=== PATIENT | male | born 1980 | race Caucasian/White ===

== ENCOUNTER 2019-06-16 14:43 | Outpatient (CLI) | payer BC, SELFPAY ==
--- NOTE | ~2019-06-16 | XR_ITS ---
EXAMINATION: XR chest 2V DATE: 06/16/2019 15:00 INDICATION: Cough and wheezing TECHNIQUE: PA and lateral views of the chest are obtained. COMPARISON: None available FINDINGS: The lungs are free of acute opacities. There is no pleural effusion or pneumothorax. The ca rdiomediastinal silhouette is normal. The visualized bones and soft tissues are unremarkable. IMPRESSION: 1. No acute cardiopulmonary abnormality. Reviewed, dictated and finalized at location A.
== END 2019-06-16 14:44 | disposition home or self-care (01) ==
PROVIDERS: Visit Provider Nurse Practitioner Family
DX: R06.2 Wheezing (principal)
CPT/HCPCS: 71046

== ENCOUNTER 2019-06-23 14:06 | Outpatient (CLI) | payer BC, SELFPAY ==
--- NOTE | ~2019-06-23 | XR_ITS ---
EXAMINATION: XR chest 2V 06/23/2019 14:49 INDICATION: Shortness of breath and chest pain PROCEDURE: 2 view chest COMPARISON: 06/16/2019 FINDINGS: The lungs are clear. The cardiomediastinal silhouette is within normal limits. There are no pleural effusions. There is no pneumothorax suspected. IMPRESSION: 1: NO ACUTE CARDIOPULMONARY DISEASE. Reviewed, dictated and finalized at location A.
--- NOTE | 2019-06-23 14:13 | ECG_ITS ---
Measurements Intervals [place] Rate: 82 P: 63 HI: 144 QRS: -27 QRSD: 100 T: 43 QT: 362 QTc: 423 Interpretive Statements SINUS RHYTHM BASELINE ARTIFACT- I, II, III, AVL NORMAL ECG Electronically Signed On 06-23-2019 15:17:27 CDT by Andre Molina D.O.
[2019-06-23 14:30] LABS: Basophils Absolute Auto 0.04 K/mm3 (0.00-0.10); Basophils Percent Auto 0.2 % (0.0-1.0); Hematocrit 49.3 % (40.0-54.0); Hemoglobin 17.3 g/dL (14.0-18.0); Immature Granulocyte Percent A 0.5 % (0.0-0.0); Lymphocytes Absolute Auto 2.22 K/mm3 (1.10-4.50); Lymphocytes Percent Auto 11.4 % (18.0-42.0); Mean Corpuscular HGB Conc 35.1 g/dL (32.0-36.0); Mean Corpuscular Hemoglobin 30.1 pg (27.0-31.0); Mean Corpuscular Volume 85.9 fL (78.0-102.0); Mean Platelet Volume 10.5 fl (8.7-11.0); Monocytes Absolute Auto 1.24 K/mm3 (0.10-0.90); Monocytes Percent Auto 6.3 % (2.0-11.0); Neutrophils Absolute Auto 15.9 K/mm3 (1.7-7.2); Neutrophils Percent Auto 81.6 % (50.0-70.0); Platelet Count Result 339 K/mm3 (150-420); Red Blood Count 5.74 M/mm3 (4.70-6.10); Red Cell Distribution Width 11.9 % (11.6-14.4); White Blood Count 19.5 K/mm3 (4.8-10.8)
[2019-06-23 14:49] LABS: Alanine Aminotransferase 40 U/L (16-63); Alkaline Phosphatase 142 U/L (46-116); Anion Gap 16.9 mmol/L (7-16); Aspartate Amino Transferase 20 U/L (15-37); Bilirubin,Total 0.4 mg/dL (0.00-1.00); Blood Urea Nitrogen 16 mg/dL (7-18); Calcium 9.1 mg/dL (8.5-10.1); Carbon Dioxide 26 mmol/L (21-32); Chloride 99 mmol/L (98-108); Estimated Glomerular Filt Rate > 60; Glucose 101 mg/dL (70-99); Lipase 142 U/L (73-393); Osmolality Calculated 287 mOsm/kg (285-295); Potassium 3.9 mmol/L (3.5-5.1); Sodium 138 mmol/L (136-145); Total Protein 8.2 g/dL (6.4-8.2); Troponin I < 0.02 ng/mL (0.00-0.056)
== END 2019-06-23 14:07 | disposition home or self-care (01) ==
PROVIDERS: PCP Nurse Practitioner Family; Visit Provider Nurse Practitioner Family
DX: R07.9 Chest pain, unspecified (principal); R10.9 Unspecified abdominal pain; R11.2 Nausea with vomiting, unspecified; R06.02 Shortness of breath
CPT/HCPCS: 36415; 71046; 80053; 83690; 84484; 85025; 93005

== ENCOUNTER 2019-06-23 16:20 | Emergency (ER) | payer BC, SELFPAY ==
--- NOTE | ~2019-06-23 | CT_ITS ---
EXAMINATION: CT abdomen pelvis w con DATE: 06/23/2019 17:56 INDICATION: Epigastric abdominal pain. Fever. TECHNIQUE: Computed tomography (CT) of the abdomen and pelvis was performed with 100 mL Omnipaque 350 intravenous contrast. Automated exposure control and iterative reconstruction technique were employe d. The dose-length product was 1156.76 mGy-cm. COMPARISON: None. FINDINGS: The visualized portions of the lung bases demonstrate a 5 mm nodule in right middle lobe, l ikely benign. No pleural effusion. The heart size is normal. No pericardial effusion. The liver, gall bladder, spleen, pancreas, adrenal glands, and kidneys are normal. There is a small left inguinal her gavin containing fat. The colon is unremarkable. The appendix is not visualized. There is wall thickeni ng of the distal duodenum and proximal jejunum with fat stranding in the mesentery. There are mildly enlarged mesenteric lymph nodes in this area. There is an umbilical hernia containing fat. There is n o free intraperitoneal fluid. There is moderate degenerative disc disease at L5-S1. IMPRESSION: 1. Enteritis involving the distal duodenum and proximal jejunum. 2. Mild mesenteric lymphadenopathy, likely reactive. Reviewed, dictated and finalized at location A.
[2019-06-23 16:41] VITALS: BP 138/91; PULSE 89; RESP 12; TEMP 36.8; O2SAT 98
--- NOTE | 2019-06-23 16:44 | ED.ABDPAIN ---
HPI - Abdominal Pain General Chief Complaint: Abdominal Pain Stated Complaint: abd pain Time Seen by Provider: 06/23/19 16:55 Source: patient and family Mode of arrival: ambulatory Limitations: no limitations Related Data Home Medications Medication Instructions Recorded Confirmed mesalamine 1.2 gram tablet,delayed 2.4 gm PO DAILY 06/23/19 06/23/19 release Allergies Allergy/AdvReac Type Severity Reaction Status Date / Time No Known Allergies Allergy Unverified 06/23/19 13:36 [facility] Social History Social History (Updated 06/23/19 @ 13:38 by Iona Sharma MA) Smoking status: Former smoker Tobacco type: cigarettes and e-cigarettes Alcohol intake: current Substance use: never Substance use type: does not use Additional living arrangements comments: Additional occupation/education comments: [employer] Discharge Plan Discharge Clinical Impression: Enteritis Pneumonia Qualifiers: Pneumonia type: due to unspecified organism Laterality: unspecified laterality Lung location: unspecified part of lung Qualified Code(s): J18.9 - Pneumonia, unspecified organism Patient Disposition: Acute Care Hospital Condition: Stable Instructions: Community Acquired Pneumonia (ED), Enteritis (ED) Additional Instructions: Call your doctors for follow up. Obtain stool specimen before taking antibiotics if possible. Use inhaler 1-2 puffs every 6 hours as needed. Prescriptions: New levofloxacin 750 mg tablet 750 mg PO DAILY Qty: 5 RF: 0 Combivent Respimat 20-100 mcg/actuation mist 1 - 2 puff INHALATION Q6H PRN (Reason: shortness of breath or wheezing) Qty: 4 RF: 0 Continued mesalamine 1.2 gram tablet,delayed release (DR/EC) 2.4 gm PO DAILY RF: 0 Discontinued azithromycin 250 mg tablet 250 mg PO DAILY RF: 0 Other Ambulatory Orders: C Diff Toxin Assay (Routine) Timeframe: 2 Days Location: Determined by Patient Ordered By: Harjinder Mora Stool Culture (Routine) Timeframe: 2 Days Location: Determined by Patient Ordered By: Harjinder Mora Stool Occult Blood (Routine) Timeframe: 2 Days Location: Determined by Patient Ordered By: Harjinder Mora WBC Smear Stool (Routine) Timeframe: 2 Days Location: Determined by Patient Ordered By: Harjinder Mora Follow-up/Referrals: Shwetha Melendez NP [Primary Care Provider] - Stand Alone Forms: Work/School Release IP Time of Disposition: 20:05
--- NOTE | 2019-06-23 17:43 | PC.NURSE ---
PT TAKEN TO RADIOLOGY DEPARTMENT AT THIS TIME
[2019-06-23 18:11] LABS: Appearance Urine Clear (Clear); Bilirubin Urine Negative (Negative); Color Urine Yellow (Yellow); Glucose Urine UA Negative (Negative); Ketones Urine 1+ (Negative); Leukocyte Esterase Ur Negative (Negative); Nitrate Urine Negative (Negative); Protein Urine Negative (Negative); Specific Grav Ur 1.025 (1.010-1.020); Urobilinogen Urine 0.2 mg/dL (0.2-1.0)
[2019-06-23 18:17] LABS: Add Urine Microscopic? YES; Bacteria Urine Trace /hpf; Blood Urine Trace-Lysed (Negative); RBC Urine 0-2 /hpf (0-2); Squamous Epithelial Cell Urine Rare /hpf (Few); WBC Urine 0-3 /hpf (0-3)
[2019-06-23] MEDS: SODIUM CHLORIDE 0.9% IV 1,000 ML 999 ML IV CONT (19:10)
[2019-06-23] MEDS: TRAMADOL HCL 50 MG TABLET PO (19:10)
--- NOTE | 2019-06-23 19:52 | PC.NURSE ---
1831 DR. REYNOLDS, PATIENTS GI SPECIALIST PAGED THROUGH [facility] BECAUSE EXCHANGE PHONE NUMBER WOULD NOT PAGE PHYSICIAN FOR AN ER PATIENT. NO RETURN PHONE CALL. PT INSTRUCTED TO CONTACT GI SPECIALIST FIRST THING TOMORROW MORNING FOR FOLLOW UP.
[2019-06-23 20:10] VITALS: BP 136/86; PULSE 88; RESP 15; O2SAT 100
== END 2019-06-23 20:10 | disposition home or self-care (01) ==
PROVIDERS: Emergency Provider Emergency Medicine; PCP Nurse Practitioner Family
DX: K52.9 Noninfective gastroenteritis and colitis, unspecified (principal); J18.9 Pneumonia, unspecified organism
CPT/HCPCS: 36415; 74177; 81001; 87040; 96360; 99284; A9270; J7030; Q9965

== ENCOUNTER 2019-06-24 11:28 | Outpatient (CLI) | payer BC, SELFPAY ==
[2019-06-24 12:39] LABS: Occult Blood Negative (Negative)
== END 2019-06-24 11:29 | disposition home or self-care (01) ==
LOC: CHSLAB 11:31
PROVIDERS: PCP Nurse Practitioner Family; Visit Provider Emergency Medicine
DX: K52.9 Noninfective gastroenteritis and colitis, unspecified (principal)
CPT/HCPCS: 82272; 87045; 87046; 87324; 87427; 89055

== ENCOUNTER 2020-06-07 09:00 | Outpatient (CLI) | payer BC, SELFPAY ==
[2020-06-07 09:46] VITALS: BP 135/76; PULSE 69; RESP 18
--- NOTE | 2020-06-07 11:45 | PC.NURSE ---
discharge to home ambulatory, saline lock discontinued, tolerated well
== END 2020-06-07 09:01 | disposition home or self-care (01) ==
DX: K51.318 Ulcerative (chronic) rectosigmoiditis with other complication (principal)
CPT/HCPCS: 96365; 96366; J1745; J7050

== ENCOUNTER 2020-07-05 10:10 | Outpatient (NON) | payer BC, SELFPAY | END 2020-07-05 10:11 | LOC: CHSLAB 10:11 | PROVIDERS: PCP Nurse Practitioner Family; Visit Provider Nurse Practitioner Family | DX: L98.9 Disorder of the skin and subcutaneous tissue, unspecified (principal) | CPT/HCPCS: 87255 ==

== ENCOUNTER 2020-10-30 15:27 | Emergency (ER) | payer BC, SELFPAY ==
[2020-10-30 15:30] VITALS: BP 132/75; PULSE 75; RESP 15; TEMP 37.1; O2SAT 95
--- NOTE | 2020-10-30 15:54 | ED.LOWEXIN ---
HPI - Extremity Injury (Lower) General Chief Complaint: Extremity Injury, Lower Stated Complaint: Left leg swollen ad nodule Time Seen by Provider: 10/30/20 15:40 Source: patient Mode of arrival: ambulatory Limitations: no limitations History of Present Illness HPI Narrative: Patient is brought in with a small indurated area on the left lower leg. His doctor felt this was erythema nodosum. His wants him tested for a clot. The primary area of concern today is that of this mildly tender area about the size of a silver dollar, which appears indurated on the lower leg just below the left knee on the medial aspect. This has been present for many days and is unchanged. Nothing making it better or worse. His ulcerative colitis has been much more active over the past several days, and he has had bloody stools. This has made him feel run down, and worn out. He is set up to start a biologic drug soon to help control the colitis. Onset (ago): day(s) Place: home Severity: mild Relieving factors: nothing Exacerbating factors: nothing Related Data Home Medications Medication Instructions Recorded Confirmed budesonide [Uceris] 9 mg PO DAILY 10/30/20 10/30/20 dapsone 100 mg PO DAILY 10/30/20 10/30/20 mercaptopurine 50 mg PO BID 10/30/20 10/30/20 mesalamine 1.2 g PO BID 10/30/20 10/30/20 prednisone 20 mg PO DAILY 10/30/20 10/30/20 Allergies Allergy/AdvReac Type Severity Reaction Status Date / Time No Known Allergies Allergy Verified 07/05/20 08:29 Review of Systems Constitutional: Constitutional: Reports no additional constitutional complaints Eyes: Eyes: Reports no additional eye complaints ENT: Reports system reviewed and no additional complaints, except as documented Cardiovascular: Cardiovascular: Reports no additional cardiovascular complaints Respiratory: Respiratory: Reports no additional respiratory complaints Gastrointestinal: Gastrointestinal: Reports no additional gastrointestinal complaints Genitourinary: Genitourinary: Reports no additional male genitourinary complaints Musculoskeletal: Musculoskeletal: Reports no additional musculoskeletal complaints Integumentary/Breasts: Skin/Breast: Reports system reviewed and no additional complaints, except as docu Neurologic: Reports system reviewed and no additional complaints, except as documented Psychiatric: Psychiatric: Reports no additional psychiatric complaints Endocrine: Endocrine: Reports no additional endocrine complaints Hematologic/Lymphatic: Hematologic/Lymphatic: Reports no additional hematologic/lymphatic complaints Allergic/Immunologic: Allergic/Immunologic: Reports no additional allergic/immunologic complaints [facility] Past Medical History Medical History (Updated 10/30/20 @ 17:29 by Cayetano Bhakta MD) History of ulcerative colitis Surgical History Surgical History (Updated 10/30/20 @ 16:59 by Cayetano Bhakta MD) No significant past surgical history Family History Family History Father Family history of coronary artery disease Mother Hypertension Social History Social History Smoking status: Former smoker Alcohol intake: current Alcohol use details: social Substance use: never Substance use type: does not use Additional living arrangements comments: Additional occupation/education comments: [employer] Exam Const: General: no acute distress and alert Orientation/consciousness: patient oriented x3 HENMT: Head: normal to inspection Ears: external ears normal General nose exam: Normal external nose present Mouth: Yes Normal oral and palatal mucosa present Throat: posterior oropharynx normal Eyes: Conjunctivae: conjunctivae normal Neck: Neck: normal visual inspection Chest: Chest palpation & inspection: normal inspection of the chest Resp: Effort & Inspection: normal respiratory e
[2020-10-30 16:16] LABS: Basophils Absolute Auto 0.02 K/mm3 (0.00-0.10); Basophils Percent Auto 0.2 % (0.0-1.0); Hematocrit 32.5 % (40.0-54.0); Hemoglobin 10.7 g/dL (14.0-18.0); Immature Granulocyte Absolute 0.05 K/mm3 (0.00-0.00); Immature Granulocyte Percent A 0.5 % (0.0-0.0); Lymphocytes Absolute Auto 1.52 K/mm3 (1.10-4.50); Mean Corpuscular HGB Conc 32.9 g/dL (32.0-36.0); Mean Corpuscular Volume 97.3 fL (78.0-102.0); Mean Platelet Volume 9.6 fl (8.7-11.0); Monocytes Absolute Auto 1.12 K/mm3 (0.10-0.90); Monocytes Percent Auto 11.8 % (2.0-11.0); Neutrophils Absolute Auto 6.8 K/mm3 (1.7-7.2); Neutrophils Percent Auto 71.5 % (50.0-70.0); Platelet Count Result 420 K/mm3 (150-420); Red Blood Count 3.34 M/mm3 (4.70-6.10); Red Cell Distribution Width 13.2 % (11.6-14.4); White Blood Count 9.5 K/mm3 (4.8-10.8)
[2020-10-30 16:30] LABS: D Dimer 0.52 mg/L (0.19-0.50)
[2020-10-30 16:40] LABS: Alanine Aminotransferase 23 U/L (16-63); Albumin Level 2.9 g/dL (3.4-5.0); Alkaline Phosphatase 85 U/L (46-116); Anion Gap 9 mmol/L (8-16); Aspartate Amino Transferase 13 U/L (15-37); Bilirubin,Total 0.3 mg/dL (0.00-1.00); Blood Urea Nitrogen 13 mg/dL (7-18); Calcium 8.6 mg/dL (8.5-10.1); Carbon Dioxide 28 mmol/L (21-32); Chloride 106 mmol/L (98-108); Estimated Glomerular Filt Rate > 60; Glucose 116 mg/dL (70-99); Osmolality Calculated 297 mOsm/kg (285-295); Sodium 143 mmol/L (136-145); Total Protein 6.7 g/dL (6.4-8.2)
[2020-10-30 16:45] LABS: Lactic Acid Reflex 1.4 mmol/L (0.4-2.0)
[2020-10-30 16:52] LABS: SARS-CoV-2 Ag Negative (Negative)
[2020-10-30 17:05] LABS: Appearance Urine Clear (Clear); Bilirubin Urine Negative (Negative); Color Urine Light Yellow (Yellow); Glucose Urine UA Negative (Negative); Ketones Urine Negative (Negative); Leukocyte Esterase Ur Negative LEU/UL (Negative); Nitrate Urine Negative (Negative); Protein Urine Negative (Negative); Specific Grav Ur 1.025 (1.010-1.020); Urobilinogen Urine 0.2 mg/dL (0.2-1.0); pH Urine 6.5 (5.0-8.0)
[2020-10-30 17:07] LABS: Add Urine Microscopic? YES; Blood Urine Trace-Intact (Negative); RBC Urine 0-2 /hpf (0-2); Squamous Epithelial Cell Urine Rare /hpf (Few); WBC Urine None seen /hpf (0-3)
[2020-10-30 17:08] LABS: Bacteria Urine None seen /hpf
[2020-10-30 17:15] VITALS: BP 116/74; PULSE 74; RESP 16; TEMP 37.1; O2SAT 96
== END 2020-10-30 17:31 | disposition home or self-care (01) ==
PROVIDERS: Emergency Provider Emergency Medicine; PCP Nurse Practitioner Family
DX: L52 Erythema nodosum (principal); K51.019 Ulcerative (chronic) pancolitis with unspecified complications; Z20.822 Contact with and (suspected) exposure to COVID-19
CPT/HCPCS: 36415; 80053; 81001; 83605; 85025; 85380; 87426; 99282; 99283; C9803

== ENCOUNTER 2020-11-22 15:49 | Outpatient (CLI) | payer BC, SELFPAY ==
--- NOTE | ~2020-11-22 | XR_ITS ---
EXAMINATION: XR chest 2V DATE: 11/22/2020 16:37 INDICATION: Shortness of breath. Central chest pain. TECHNIQUE: Frontal and lateral views of the chest were obtained. COMPARISON: Chest 2 views 06/23/2019 FINDINGS: A calcified left lung nodule is consistent with old granulomatous disease. No pleural effus ion or pneumothorax. The heart size is normal. IMPRESSION: 1. No acute cardiopulmonary disease. Reviewed, dictated and finalized at location A.
[2020-11-22 16:04] LABS: Basophils Absolute Auto 0.01 K/mm3 (0.00-0.10); Basophils Percent Auto 0.2 % (0.0-1.0); Hematocrit 34.9 % (40.0-54.0); Hemoglobin 11.5 g/dL (14.0-18.0); Immature Granulocyte Absolute 0.03 K/mm3 (0.00-0.00); Immature Granulocyte Percent A 0.5 % (0.0-0.0); Lymphocytes Percent Auto 19.8 % (18.0-42.0); Mean Corpuscular Hemoglobin 33.2 pg (27.0-31.0); Mean Corpuscular Volume 100.9 fL (78.0-102.0); Mean Platelet Volume 9.8 fl (8.7-11.0); Monocytes Absolute Auto 0.39 K/mm3 (0.10-0.90); Monocytes Percent Auto 5.9 % (2.0-11.0); Neutrophils Absolute Auto 4.8 K/mm3 (1.7-7.2); Neutrophils Percent Auto 73.6 % (50.0-70.0); Platelet Count Result 319 K/mm3 (150-420); Red Blood Count 3.46 M/mm3 (4.70-6.10); Red Cell Distribution Width 16.8 % (11.6-14.4); White Blood Count 6.6 K/mm3 (4.8-10.8)
[2020-11-22 16:23] LABS: Appearance Urine Clear (Clear); Bilirubin Urine Negative (Negative); Color Urine Yellow (Yellow); Glucose Urine UA Negative (Negative); Ketones Urine Trace (Negative); Leukocyte Esterase Ur Negative (Negative); Nitrate Urine Negative (Negative); Protein Urine Negative (Negative); Specific Grav Ur 1.025 (1.010-1.020); Urobilinogen Urine 0.2 mg/dL (0.2-1.0); pH Urine 5.5 (5.0-8.0)
[2020-11-22 16:41] LABS: Alanine Aminotransferase 32 U/L (16-63); Albumin Level 3.7 g/dL (3.4-5.0); Alkaline Phosphatase 92 U/L (46-116); Anion Gap 11 mmol/L (8-16); Aspartate Amino Transferase 21 U/L (15-37); Bilirubin,Total 0.4 mg/dL (0.00-1.00); Blood Urea Nitrogen 12 mg/dL (7-18); Calcium 9.2 mg/dL (8.5-10.1); Carbon Dioxide 27 mmol/L (21-32); Chloride 104 mmol/L (98-108); Estimated Glomerular Filt Rate > 60; Glucose 98 mg/dL (70-99); NT Pro B Type Natriuretic Pept 165 pg/mL (0-125); Osmolality Calculated 293 mOsm/kg (285-295); Potassium 3.8 mmol/L (3.5-5.1); Sodium 142 mmol/L (136-145); Total Protein 7.7 g/dL (6.4-8.2); Troponin I 4.6 ng/L (0.00-60.4)
[2020-11-22 16:43] LABS: Add Urine Microscopic? YES; Bacteria Urine 1+ /hpf; Blood Urine Trace-Intact (Negative); RBC Urine 0-2 /hpf (0-2); Squamous Epithelial Cell Urine Few /hpf (Few); WBC Urine 0-3 /hpf (0-3)
[2020-11-22 16:44] LABS: Mucus Urine Few /lpf
== END 2020-11-22 15:50 | disposition home or self-care (01) ==
LOC: CHSLAB 15:51
PROVIDERS: PCP Family Medicine; Visit Provider Nurse Practitioner Family
DX: R06.02 Shortness of breath (principal); R60.0 Localized edema
CPT/HCPCS: 36415; 71046; 80053; 81001; 83880; 84443; 84484; 85025

== ENCOUNTER 2020-12-22 08:49 | Outpatient (CLI) | payer BC, SELFPAY ==
--- NOTE | 2020-12-22 09:07 | EST_ITS ---
Patient Info Name: Sourav Lujan Age: 40 years : 1980 Gender: Male Ht: 74 in Wt: 215 lbs BSA: 2.27 m2 HR: 57 bpm BP: 144 / 79 mmHg Heart Rhythm: Sinus Rhythm Exam Date: 12/22/2020 9:28 AM Exam Location: [facility] Patient Status: Outpatient Admit Date: 12/22/2020 Staff Ordering Physician: Shwetha Melendez NP Nursing Program Director: Sukumar Mendez RDCS, RT Attending Provider: Shwetha Melendez NP Referring Physician: Al ALARCON; Exercise Technologist: Michelle Talbot CT Exercise Physician: Andre Molina DO Exam Type: CA stress echo Study Info Indications R06.02 - Shortness of breath Treadmill exercise stress echocardiogram is performed. Summary 1. 1. Negative Miguel exercise stress test for ischemic ST changes by ECG criteria. 2. 2. Good functional capacity, achieving 12 METs of workload. 3. 3. Appropriate HR response to exercise. 4. 4. Appropriate HR recovery at 1 minute post exercise. 5. 5. Negative stress echocardiogram for ischemia by wall motion analysis. 6. 6. Patient informed of the above results. Stress Echo Findings Left Ventricle Appropriate increase in LV endocardial thickening with systole. Appropriate augmentation of contractility with systole. No wall motion abnormality. Left Ventricle Preserved LV systolic function with EF 50%. No wall motion abnormalities. Protocol: Miguel Rest HR: 57 bpm Peak HR: 169 bpm Rest Sys BP: 144 mmHg Peak Sys BP: 199 mmHg Max Pred HR: 181 bpm % Max Pred HR: 93 % Target HR: 154 bpm Max RPP: 33,631 bpm*mmHg Termination Reason: Reached target heart rate or workload Cardiac Symptoms: Shortness of breath Total Time: 11 min : 1 sec Rest Brand BP: 79 mmHg Peak Brand BP: 62 mmHg Resting ECG Sinus rhythm, IRBBB. Stress ECG No ST changes. Arrhythmias None. Report Signatures Stress ECG Echo
== END 2020-12-22 08:50 | disposition home or self-care (01) ==
PROVIDERS: PCP Family Medicine; Visit Provider Nurse Practitioner Family
DX: R06.02 Shortness of breath (principal); R60.0 Localized edema; R07.89 Other chest pain
CPT/HCPCS: 93351

== ENCOUNTER 2021-04-05 11:27 | Outpatient (CLI) | payer BC, SELFPAY ==
[2021-04-05 12:48] LABS: SARS-CoV-2 RNA PCR Positive (Negative)
== END 2021-04-05 11:28 | disposition home or self-care (01) ==
LOC: CHSLAB 11:31
PROVIDERS: PCP Family Medicine; Visit Provider Nurse Practitioner Family
DX: U07.1 COVID-19 (principal)
CPT/HCPCS: C9803; U0003; U0005

== ENCOUNTER 2021-05-25 10:03 | Emergency (ER) | payer BC, SELFPAY ==
--- NOTE | ~2021-05-25 | XR_ITS ---
EXAMINATION: XR lumbar spine 2-3V DATE: 05/25/2021 10:19 INDICATION: Low back pain TECHNIQUE: Anteroposterior and lateral views of the lumbar spine, and cone-down lateral view of the l umbosacral junction were obtained. COMPARISON: None. FINDINGS: There is unchanged moderate loss of intervertebral disc space height at L5-S1. The remainin g intervertebral disc spaces are maintained. The vertebral body heights are normal. Bone alignment is normal. There is no fracture. IMPRESSION: 1. Mild lower lumbar spondylosis without acute findings or significant interval change. Reviewed, dictated and finalized at location A. ROUGHER
--- NOTE | 2021-05-25 10:14 | ED.BACK ---
HPI - Back Pain/Injury General Chief Complaint: Back Pain/Injury Stated Complaint: FALL/TAILBONE INJURY/BACK PAIN Source: patient, RN notes reviewed and old records reviewed Mode of arrival: ambulatory Limitations: no limitations History of Present Illness HPI Narrative: 40 year old male who presents to [facility] care with complaints of pain to the tailbone and lower back after sustaining a fall 5 days ago. Patient reports he slipped on the ice on a slow program and fell onto the tailbone region. Pain does go up to the middle lower back region no SI discomfort noted. Patient denies any tingling or numbness or pain radiating to his lower extremities, denies any difficulty with bowel or bladder function or any saddle paresthesia. Patient does have history of ulcerative colitis and is presently under treatment with medications, does have scheduled colonoscopy next week. MD elicited complaint: back pain, back injury and fall Related Data Home Medications Medication Instructions Recorded Confirmed budesonide [Uceris] 9 mg PO DAILY 10/30/20 10/30/20 dapsone 100 mg PO DAILY 10/30/20 10/30/20 mercaptopurine 50 mg PO BID 10/30/20 10/30/20 mesalamine 1.2 g PO BID 10/30/20 10/30/20 Allergies Allergy/AdvReac Type Severity Reaction Status Date / Time No Known Allergies Allergy Verified 11/23/20 12:45 Review of Systems Review of Systems: CONSTITUTIONAL: Denies fever, chills, or sweats. EYES: Denies visual changes, redness, or discharge. ENT: Denies rhinorrhea, congestion, sore throat, or otalgia. CARDIOVASCULAR: Denies chest pain, palpitations, or edema. RESPIRATORY: Denies cough or dyspnea. GASTROINTESTINAL: Denies any abdominal pain, nausea, vomiting, or diarrhea, does have a history of ulcerative colitis GENITOURINARY: Denies dysuria or hematuria. SKIN: Denies rash or itching. MUSCULOSKELETAL: Positive lower back pain and tailbone area pain, joint pain, or myalgia. NEUROLOGIC: Denies headache, numbness, or weakness. PSYCHIATRIC: Denies anxiety or depression. All systems reviewed & are unremarkable except as noted in HPI and below PMFSH Past Medical History Medical History History of ulcerative colitis Surgical History Surgical History No significant past surgical history Family History Family History Father Family history of coronary artery disease Mother Hypertension Social History Social History Smoking status: Former smoker Alcohol intake: current Alcohol use details: social Substance use: never Substance use type: does not use Additional living arrangements comments: Additional occupation/education comments: [employer] Comments At time of signature, agree with nursing past medical, surgical, social and family history. There is no relevant family history pertinent to the presenting complaint Exam Narrative: GENERAL: Well-appearing, well-nourished, and in no acute distress. HEAD: Normocephalic, atraumatic. EYES: PERRLA and EOMI. ENT: Nares clear, no rhinorrhea or epistaxis. Mucous membranes moist. TMs normal with good light reflex throat pink with no lesions or exudates or tonsillar swelling NECK: Supple. No lymphadenopathy CHEST: Clear to auscultation. No respiratory distress. SaO2 100% on room air HEART: Regular rate and rhythm. No murmur heard. Normal peripheral pulses. ABDOMEN: Soft, nontender, nondistended, normal active bowel sounds. EXTREMITIES: Normal range of motion. No edema. Positive for lower back pain and tailbone discomfort from fall. Pain increases with activity. Patient denies any tingling or numbness to lower extremities or radiation of pain to legs. He denies any saddle paresthesia or difficulty passing urine or stool. Patient has strong pedal and po
[2021-05-25 10:19] VITALS: BP 147/79; PULSE 80; RESP 16; TEMP 36.6; O2SAT 100
== END 2021-05-25 10:46 | disposition home or self-care (01) ==
PROVIDERS: Emergency Provider Registered Nurse; PCP Family Medicine
DX: M53.3 Sacrococcygeal disorders, not elsewhere classified (principal); M54.50 Low back pain, unspecified; Z87.891 Personal history of nicotine dependence
CPT/HCPCS: 72100; 99213; G0463